=== PATIENT | male | born 1985 | race Two or more races ===

== ENCOUNTER 2017-01-16 06:23 | Emergency (ER) | payer BC ==
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
== END 2017-01-16 06:50 | disposition home or self-care (01) ==
LOC: ER 06:23
PROC: 0HQKXZZ Repair Right Lower Leg Skin, External Approach (ICD-10-PCS; principal; 2017-01-16)
DX: S81.811A Laceration without foreign body, right lower leg, initial encounter (principal); Z23 Encounter for immunization; F17.200 Nicotine dependence, unspecified, uncomplicated; W26.0XXA Contact with knife, initial encounter